=== PATIENT | female | born 1990 | race Caucasian/White ===

== ENCOUNTER 2021-02-27 07:09 | Observation (INO) | payer OTHER ==
[~2021-02-27] VITALS: Ht 170.2 cm; Wt 85.7 kg
[2021-02-27 07:28] VITALS: BP 152/85
--- NOTE | 2021-02-27 07:30 | NUR ---
PT AMBULATED TO BED
[2021-02-27] MEDS ORDERED: METOCLOPRAMIDE 10 MG/2 ML INJ VIAL IVP ONE ×2 (08:00→12:05)
[2021-02-27] MEDS ORDERED: NACL 0.9% 1,000 ML IV ONE (08:00)
--- NOTE | 2021-02-27 08:17 | NUR ---
LAB AT BEDSIDE
--- NOTE | 2021-02-27 08:30 | NUR ---
30 Y/O FEMALE C/O ABD PAIN X3 DAYS. PT STATES NAUSEA AND VOMITING. DENIES DIARRHEA/CONSTIPATION. PT STATES 5/10 PAIN. 9 WEEKS . . ABD SOFT NON TENDER. VSS. SKIN WARM AND DRY. MEDHX: DENIES ALLERGIES: IBUPROFEN
--- NOTE | 2021-02-27 08:31 | NUR ---
ULTRASOUND AT BEDSIDE
[2021-02-27 08:32] LABS: BASOPHILS # (AUTO) 0.1 K/uL (0.00-0.22); BASOPHILS % (AUTO) 0.7 % (0.0-2.0); EOSINOPHILS # (AUTO) 0.2 K/uL (0-0.4); EOSINOPHILS % (AUTO) 1.6 % (0.0-4.0); HEMATOCRIT 34.4 % (36-48); HEMOGLOBIN 11.8 g/dL (12.0-16.0); LYMPHOCYTES # (AUTO) 2.1 K/uL (2.5-16.5); LYMPHOCYTES % (AUTO) 20.3 % (20.5-51.1); MEAN CORPUSCULAR HEMOGLOBIN 27 pg (27-31); MEAN CORPUSCULAR HGB CONC 34 g/dL (33-37); MEAN CORPUSCULAR VOLUME 77.6 fL (80-94); MONOCYTES # (AUTO) 0.7 K/uL (0.8-1.0); MONOCYTES % (AUTO) 6.8 % (1.7-9.3); NEUTROPHILS # (AUTO) 7.2 K/uL (1.8-7.7); NEUTROPHILS % (AUTO) 70.6 % (42.2-75.2); PLATELET COUNT (AUTO) 337 K/uL (140-450); RED BLOOD CELL COUNT(AUTO) 4.43 MIL/uL (4.20-5.40); WHITE BLOOD COUNT (AUTO) 10.1 K/uL (4.8-10.8)
[2021-02-27 08:39] LABS: BILIRUBIN,URINE 2+ (NEGATIVE); BLOOD, URINE TRACE-I (NEGATIVE); COLOR,URINE YELLOW (YELLOW); LEUKOCYTE ESTERASE ,URINE NEGATIVE (NEGATIVE); UGLUCOSE NEGATIVE (NEGATIVE)
[2021-02-27 08:51] LABS: APPEARANCE,URINE HAZY (CLEAR)
[2021-02-27 08:52] LABS: NITRITE, URINE POSITIVE (NEGATIVE); RBC,URINE 0-5 /HPF (0-5); WBC,URINE 16-25 (MOD) /HPF (0-5)
[2021-02-27] MEDS ORDERED: NACL 0.9% 1,000 ML IV SCH (08:55)
[2021-02-27 09:08] LABS: ANION GAP 20.1 (8-16); CARBON DIOXIDE 19.6 mmol/L (21-32); CREATININE 0.7 mg/dL (0.6-1.3); POTASSIUM 3.7 mmol/L (3.5-5.1)
[2021-02-27 09:14] LABS: ALBUMIN 3.9 g/dL (3.4-5.0); BILIRUBIN,DIRECT 0.1 mg/dL (0.0-0.3); TOTAL BILIRUBIN 0.6 mg/dL (0.0-1.0)
[2021-02-27] MEDS ORDERED: PYRIDOXINE 50 MG TAB PO STA (10:09)
[2021-02-27] MEDS ORDERED: ONDANSETRON 4 MG/2 ML VIAL IVP ONE (10:10)
[2021-02-27] MEDS ORDERED: CRUSHER, PILL MC ONE (10:25)
--- NOTE | 2021-02-27 10:30 | NUR ---
PT C/O NAUSEA. ZOFRAN GIVEN PER ERMD
[2021-02-27] MEDS ORDERED: cephALEXin 500 MG CAP PO ONE (10:45)
[2021-02-27] MEDS ORDERED: ACETAMINOPHEN 325 MG TAB PO PRN (12:05)
[2021-02-27] MEDS ORDERED: MAG SULF 2000 MG/WATER PREMIX 50 ML IV PRN (12:05)
[2021-02-27] MEDS ORDERED: POTASSIUM CHLORIDE 10 MEQ TABER PO PRN (12:05)
[2021-02-27] MEDS ORDERED: ONDANSETRON 4 MG/2 ML VIAL IVP PRN (12:05)
[2021-02-27] MEDS ORDERED: MAGNESIUM OXIDE 400 MG TAB PO PRN (12:05)
[2021-02-27] MEDS ORDERED: KCL 20 MEQ/WATER INJ PREMIX 200 ML IV PRN (12:05)
[2021-02-27] MEDS ORDERED: METOCLOPRAMIDE 10 MG/2 ML INJ VIAL IVP PRN ×2 (12:05→13:40)
--- NOTE | 2021-02-27 12:30 | NUR ---
Patient awake, resting comfortably in bed. Vital Signs within normal limits. Respirations even and unlabored. Chest rise is symmetrical. Will continue to monitor.
[2021-02-27] MEDS ORDERED: cefTRIAXone 1,000 MG VIAL ONE (12:40)
[2021-02-27] MEDS: NACL 0.9% 1,000 ML IV SCH ×2 (12:44→21:40)
[2021-02-27] MEDS ORDERED: PROMETHAZINE 25 MG/ML VIAL IM PRN (13:35)
[2021-02-27] MEDS ORDERED: ACETAMINOPHEN 325 MG TAB PO SCH (14:50)
--- NOTE | 2021-02-27 16:45 | NUR ---
DR FREGOSO AT BEDSIDE EXAMINING PT
[2021-02-27] MEDS: ONDANSETRON 4 MG/2 ML VIAL IVP SCH (17:08)
--- NOTE | 2021-02-27 17:08 | NUR ---
PT'S AT BEDSIDE
--- NOTE | 2021-02-27 19:24 | NUR ---
Pt report given to CONRADO GLOVER. Transfer of care at this time.
[2021-02-27] MEDS: FAMOTIDINE 20 MG/2 ML VIAL IV SCH (21:41)
[2021-02-27] MEDS: METOCLOPRAMIDE 10 MG/2 ML INJ VIAL IVP SCH (21:42)
--- NOTE | 2021-02-27 23:36 | NUR ---
Patient will be admitted to care of DR FREGOSO. Admited to Med/Surg. Will go to room 110B. Belongings list completed. Report to REYNOLD RN. [facility]
[2021-02-27 23:45] VITALS: BP 119/70
--- NOTE | 2021-02-28 | NUR ---
ADMITTED THE PATIENT FROM ER VIA WHEELCHAIR. PATIENT A/A/OX4, AMBULATORY. PATIENT DENIES ANY NAUSEA AND VOMITING AT THIS TIME. IVF INFUSING ORDERED. VSS, AFEBRILE,SATING 96% ON RA. NO COMPLAIN AT THIS TIME AND NOT IN ANY DISTRESS. ORIENTED THE PT TO THE ROOM SETTING AND USE OF CALL LIGHT SYSTEM. PT VERBALIZED UNDERSTANDING WITH THE POC. CALL LIGHT WITHIN REACH. WILL CONTINUE POC.
[2021-02-28] MEDS: ONDANSETRON 4 MG/2 ML VIAL IVP SCH ×4 (00:18→17:09)
--- NOTE | 2021-02-28 02:09 | NUR ---
PATIENT ASLEEP AT THIS TIME. VISIBLE CHEST RISE AND FALL NOTED. SAFETY MEASURES IN PLACED. WILL CONTINUE OBSERVATION.
[2021-02-28 04:00] VITALS: BP 109/57
--- NOTE | 2021-02-28 04:00 | NUR ---
PT VITAL SIGNS STABLE, AFEBRILE, SATING 98% ON RA. NOT IN ANY DISTRESS AND NO COMPLAIN AT THIS TIME. CALL LIGHT WITHIN REACH.
[2021-02-28] MEDS: NACL 0.9% 1,000 ML IV SCH ×3 (05:48→21:25)
--- NOTE | 2021-02-28 06:46 | NUR ---
NO ACUTE EVENT THROUGHOUT THE NIGHT. PATIENT STABLE AND NOT IN ANY DISTRESS. NO COMPLAIN AT THIS TIME. ALL NEEDS ATTENDED. CALL LIGHT WITHIN REACH. WILL ENDORSE THE PT TO THE ONCOMING RN FOR CONTINUITY OF CARE.
[2021-02-28 07:13] LABS: BASOPHILS # (AUTO) 0.1 K/uL (0.00-0.22); BASOPHILS % (AUTO) 0.8 % (0.0-2.0); EOSINOPHILS # (AUTO) 0.2 K/uL (0-0.4); EOSINOPHILS % (AUTO) 2.7 % (0.0-4.0); HEMATOCRIT 30.1 % (36-48); HEMOGLOBIN 10.4 g/dL (12.0-16.0); LYMPHOCYTES # (AUTO) 2.4 K/uL (2.5-16.5); LYMPHOCYTES % (AUTO) 29.4 % (20.5-51.1); MEAN CORPUSCULAR HEMOGLOBIN 27 pg (27-31); MEAN CORPUSCULAR HGB CONC 34 g/dL (33-37); MONOCYTES # (AUTO) 0.6 K/uL (0.8-1.0); MONOCYTES % (AUTO) 7.7 % (1.7-9.3); NEUTROPHILS # (AUTO) 4.9 K/uL (1.8-7.7); NEUTROPHILS % (AUTO) 59.4 % (42.2-75.2); PLATELET COUNT (AUTO) 285 K/uL (140-450); RED BLOOD CELL COUNT(AUTO) 3.81 MIL/uL (4.20-5.40); RED CELL DISTRIBUTION WIDTH 14.4 % (11.6-13.7); WHITE BLOOD COUNT (AUTO) 8.3 K/uL (4.8-10.8)
[2021-02-28 07:20] LABS: ALBUMIN 3.2 g/dL (3.4-5.0); ANION GAP 18.2 (8-16); CARBON DIOXIDE 16.5 mmol/L (21-32); CREATININE 0.6 mg/dL (0.6-1.3); MAGNESIUM 1.9 mg/dL (1.8-2.4); POTASSIUM 3.7 mmol/L (3.5-5.1); TOTAL BILIRUBIN 0.6 mg/dL (0.0-1.0)
--- NOTE | 2021-02-28 07:45 | NUR ---
RECEIVED PT FROM NIGHT RN, PT IS AWAKE, ALERT AND ORIENTED, ON RA, IV LINE NOTED ON THE LAC G. 20 WITH NS INFUSING AT 120ML/HR, INTACT, PT IS 9WEEKS 5 DAYS , , NO SIGN OF DISTRESS NOTED AND WILL CONTINUE TO MONITOR PT.
--- NOTE | 2021-02-28 07:49 | NUR ---
ENDORSED PATIENT TO DAY RN FOR CONTINUITY OF CARE. PATIENT STABLE . SIGNING OFF.
[2021-02-28 08:00] VITALS: BP 140/58
--- NOTE | 2021-02-28 08:52 | NUR ---
PATIENT HAS BEEN SCREENED AND CATEGORIZED HIGH NUTRITION RISK. PATIENT WILL BE SEEN WITHIN 1-2 DAYS OF ADMISSION. 02/28/21-03/01/21 REFERRAL RECEIVED FOR VOMITING OVER [address]
[2021-02-28] MEDS: METOCLOPRAMIDE 10 MG/2 ML INJ VIAL IVP SCH ×2 (10:20→22:21)
[2021-02-28] MEDS: FAMOTIDINE 20 MG/2 ML VIAL IV SCH ×2 (10:21→22:21)
--- NOTE | 2021-02-28 10:21 | NUR ---
PT WAS GIVEN THE SCHEDULED AM MEDICATIONS NOW, PT FEEL FINE NOW VERBALIZED. WILL CONTINUE TO MONITOR PT. ON BEDSIDE.
[2021-02-28] MEDS: PANTOPRAZOLE 40 MG INJ VIAL IVP SCH (10:29)
--- NOTE | 2021-02-28 12:15 | NUR ---
PT IS HAVING LUNCH NOW, ON BEDSIDE.
--- NOTE | 2021-02-28 14:20 | NUR ---
PT IS RESTING RIGHT NOW. NO SIGN OF DISTRESS NOTED.
--- NOTE | 2021-02-28 15:14 | NUR ---
02/28/21 RD INITIAL ASSESSMENT COMPLETED PLEASE REFER TO NUTRITION ASSESSMENT UNDER CARE ACTIVITY FOR ESTIMATED NUTRITIONAL NEEDS. 1. WHEN/IF MEDICALLY APPROPRIATE, ADVANCE TO REGULAR DIET 2. RD TO FOLLOW-UP 3-5 DAYS, MODERATE RISK BLANCO [address]IOJ[address] RD
[2021-02-28 16:00] VITALS: BP 112/58
--- NOTE | 2021-02-28 17:09 | NUR ---
PT WAS GIVEN ZOFRAN IVP NOW, PT VERBALIZED THAT SHE FEELS NAUSEATED NOW. MEDICATED AND WILL CONTINUE TO BE MONITORED.
--- NOTE | 2021-02-28 19:47 | NUR ---
ENDORSED PT OT NIGHT RN FOR CONTINUITY OF CARE.
--- NOTE | 2021-02-28 19:48 | NUR ---
RECEIVED PATIENT REPORT FROM AM SHIFT NURSE FOR CONTINUITY OF CARE. PATIENT IN BED AWAKE, ALERT AND VERBALLY RESPONSIVE. ABLE TO VERBALIZED NEEDS. HOB AT SEMI-FOWLERS POSITION. FAMILY AT BEDSIDE. ON ROOM AIR. AOX4. BREATHING EVEN AND UNLABORED WITH NO SOB NOTED. NOT IN DISTRESS. DENIES ANY PAIN OR DISCOMFORT AT THIS TIME. ALL SAFETY MEASURES IN PLACE. CALL LIGHT WITHIN REACH. WILL CONTINUE WITH THE PLAN OF CARE
--- NOTE | 2021-02-28 21:30 | NUR ---
GIVE IV MEDICATIONS TO BELEN ORO FOR ADMINISTRATION. PATIENT IN BED AWAKE. DENIES ANY PAIN OR DISCOMFORT AT THIS TIME. NOT IN DISTRESS. ALL SAFETY MEASURES IN PLACE. CALL LIGHT WITHIN REACH. WILL CONTINUE TO MONITOR.
--- NOTE | 2021-02-28 23:51 | NUR ---
ROUNDED ON PATIENT. PATIENT IN BED ASLEEP WITH HOB AT SEMI-FOWLERS. VISIBLE CHEST RISING AND FALLING. ALL SAFETY MEASURES IN PLACE. CALL LIGHT WITHIN REACH. WILL CONTINUE TO MONITOR.
[2021-03-01] VITALS: BP 104/57
[2021-03-01] MEDS: ONDANSETRON 4 MG/2 ML VIAL IVP SCH ×3 (01:18→12:29)
--- NOTE | 2021-03-01 02:14 | NUR ---
ROUNDED ON PATIENT. PATIENT IS SLEEPING WELL WITH HOB ELEVATED. BREATHING EVEN AND UNLABORED WITH NO SOB NOTED. NOT IN DISTRESS. ALL SAFETY MEASURES IN PLACE. CALL LIGHT WITHIN REACH. WILL CONTINUE TO MONITOR.
--- NOTE | 2021-03-01 04:30 | NUR ---
ROUNDED ON PATIENT. PATIENT REQUESTING WARM BLANKET. WARM BLANKET PROVIDED. PATIENT DENIES ANY PAIN AT THIS TIME. NOT IN DISTRESS. BREATHING EVEN AND UNLABORED WITH NO SOB NOTED. ALL SAFETY MEASURES IN PLACE. CALL LIGHT WITHIN REACH. WILL CONTINUE TO MONITOR.
[2021-03-01] MEDS: NACL 0.9% 1,000 ML IV SCH ×2 (05:34→12:31)
--- NOTE | 2021-03-01 07:20 | NUR ---
RECEIVED ENDORSEMENT FROM WELD LAY OUT WORKER FOR CONTINUITY OF CARE. PT ON STABLE CONDITION NO COMPLAIN OF NAUSEA AT THIS TIME.
--- NOTE | 2021-03-01 07:20 | NUR ---
RECEIVED REPORT FROM CLIFTON ENNIS FOR CONTINUITY OF CARE. PT IS STABLE. PLAN OF CARE DISCUSSED.
--- NOTE | 2021-03-01 07:25 | NUR ---
ENDORSED PATIENT REPORT TO AM SHIFT NURSE FOR CONTINUITY OF CARE. PATIENT IS STABLE.
[2021-03-01 07:30] LABS: BASOPHILS # (AUTO) 0.1 K/uL (0.00-0.22); BASOPHILS % (AUTO) 0.8 % (0.0-2.0); EOSINOPHILS # (AUTO) 0.2 K/uL (0-0.4); EOSINOPHILS % (AUTO) 2.9 % (0.0-4.0); HEMATOCRIT 27.3 % (36-48); HEMOGLOBIN 9.5 g/dL (12.0-16.0); LYMPHOCYTES % (AUTO) 29.7 % (20.5-51.1); MEAN CORPUSCULAR HEMOGLOBIN 27 pg (27-31); MEAN CORPUSCULAR HGB CONC 35 g/dL (33-37); MONOCYTES # (AUTO) 0.5 K/uL (0.8-1.0); NEUTROPHILS % (AUTO) 58.6 % (42.2-75.2); PLATELET COUNT (AUTO) 254 K/uL (140-450); RED CELL DISTRIBUTION WIDTH 14.1 % (11.6-13.7); WHITE BLOOD COUNT (AUTO) 6.8 K/uL (4.8-10.8)
[2021-03-01 08:00] VITALS: BP 102/54
[2021-03-01 08:02] LABS: ANION GAP 13.9 (8-16); CARBON DIOXIDE 19.7 mmol/L (21-32); CREATININE 0.6 mg/dL (0.6-1.3); MAGNESIUM 1.9 mg/dL (1.8-2.4); POTASSIUM 3.6 mmol/L (3.5-5.1); TOTAL BILIRUBIN 0.5 mg/dL (0.0-1.0)
[2021-03-01] MEDS ORDERED: FOLI0.8T9 PO (08:54)
[2021-03-01] MEDS ORDERED: PYRI-218 PO (08:54)
[2021-03-01] MEDS ORDERED: DOXY25TA61 PO (08:54)
[2021-03-01] MEDS ORDERED: ONDA4TAB PO (08:54)
[2021-03-01] MEDS ORDERED: METO-485 PO (08:54)
[2021-03-01] MEDS: PANTOPRAZOLE 40 MG INJ VIAL IVP SCH (09:36)
[2021-03-01] MEDS: FAMOTIDINE 20 MG/2 ML VIAL IV SCH (09:37)
[2021-03-01] MEDS: METOCLOPRAMIDE 10 MG/2 ML INJ VIAL IVP SCH (09:37)
--- NOTE | 2021-03-01 09:44 | NUR ---
PT ALERT GIVEN HER MEDICATION TOLERATED WELL.
--- NOTE | 2021-03-01 11:30 | NUR ---
PT ON STABLE CONDITION. ALL SAFETY PRECAUTION IN PLACE. CALL LIGHT WITH IN EASY REACH.
[2021-03-01 11:53] VITALS: BP 102/54
--- NOTE | 2021-03-01 13:20 | NUR ---
PT ALERT ON STABLE CONDITION GIVEN DISCHARGE INSTRUCTION WITH VERBALIZATION OF UNDERSTANDING.
--- NOTE | 2021-03-01 13:45 | NUR ---
PT DISCHARGE HOME. NAME BAND REMOVED AND IV REMOVED WITH CATHETER INTACT. WALKED WITH PT TILL THE LOBBY PT WILL DRIVE HER SELF.
== END 2021-03-01 14:00 | disposition home or self-care (01) ==
LOC: MED 07:09 → MMU 12:06 → MTU 17:31
PROVIDERS: ADMIT Internal Medicine; ATTEND Internal Medicine
DX: O21.0 Mild hyperemesis gravidarum (principal); O23.41 Unspecified infection of urinary tract in pregnancy, first trimester; Z3A.09 9 weeks gestation of pregnancy
CPT/HCPCS: 36415; 76801; 80048; 80053; 80076; 81001; 83690; 83735; 84443; 84484; 84702; 85025; 87081; 87086; 93005; 96361; 96365; 96366; 96372; 96375; 96376; 99285; C9113; G0378; J0696; J1644; J2405; J2765; J3490; J7060; Q0092

== ENCOUNTER 2021-03-04 19:14 | Emergency (ER) | payer OTHER ==
[~2021-03-04] VITALS: Ht 170.2 cm; Wt 85.7 kg
[~2021-03-04 19:14] MED LIST: DOXY25TA61 PO; FOLI0.8T9 PO; METO-485 PO; ONDA4TAB PO; PYRI-218 PO
[2021-03-04 19:30] VITALS: BP 140/75
--- NOTE | 2021-03-04 19:30 | NUR ---
TO BED AMBULATORY
--- NOTE | 2021-03-04 19:58 | NUR ---
Dr. Naqvi examining patient.
[2021-03-04 22:17] VITALS: BP 122/70
--- NOTE | 2021-03-04 22:18 | NUR ---
Patient discharged with v/s stable. Written and verbal after care instructions given and explained. Patient verbalized understanding. Ambulatory with steady gait. All questions addressed prior to discharge. Advised to follow up with PMD.
== END 2021-03-04 22:18 | disposition home or self-care (01) ==
LOC: MED 19:14
DX: O20.8 Other hemorrhage in early pregnancy (principal); Z3A.10 10 weeks gestation of pregnancy
CPT/HCPCS: 76815; 81002; 81025; 99284; Q0092

== ENCOUNTER 2021-06-07 12:20 | Observation (INO) | payer OTHER, SELFPAY ==
[~2021-06-07] VITALS: Ht 170.2 cm; Wt 84.8 kg
[2021-06-07] MEDS ORDERED: PREN-537 PO (14:05)
== END 2021-06-07 14:15 | disposition home or self-care (01) ==
LOC: MLD 12:20
PROVIDERS: ADMIT Obstetrics & Gynecology; ATTEND Obstetrics & Gynecology
DX: O99.892 Other specified diseases and conditions complicating childbirth (principal); Z20.822 Contact with and (suspected) exposure to COVID-19; R10.30 Lower abdominal pain, unspecified; O99.891 Other specified diseases and conditions complicating pregnancy; M54.50 Low back pain, unspecified; Z3A.24 24 weeks gestation of pregnancy
CPT/HCPCS: 87426; G0378; 59025; 81000

== ENCOUNTER 2021-07-04 09:33 | Observation (INO) | payer OTHER ==
[~2021-07-04] VITALS: Ht 170.2 cm; Wt 88.0 kg
[~2021-07-04 09:33] MED LIST changes: +PREN-537 PO
[2021-07-04] MEDS ORDERED: LACTATED RINGERS 1,000 ML IV SCH (10:25)
[2021-07-04] MEDS ORDERED: SODIUM FERRIC GLUCONATE 125 MG in NACL 0.9% 100 ML IV SCH (10:25)
[2021-07-04 11:17] VITALS: BP 131/67
== END 2021-07-04 13:15 | disposition home or self-care (01) ==
LOC: MLD 09:33
PROVIDERS: ADMIT Obstetrics & Gynecology; ATTEND Obstetrics & Gynecology
DX: O26.892 Other specified pregnancy related conditions, second trimester (principal); R42 Dizziness and giddiness; Z20.822 Contact with and (suspected) exposure to COVID-19; Z3A.24 24 weeks gestation of pregnancy
CPT/HCPCS: 87426; 96361; 96365; G0378; J2916; 59025